=== PATIENT | male | born 1995 | race Caucasian/White ===

== ENCOUNTER 2017-10-21 00:17 | Emergency (ER) | payer OTHER ==
[2017-10-21] MEDS: ACETAMINOPHEN 500 MG TAB PO (03:51)
== END 2017-10-21 05:24 | disposition home or self-care (01) ==
LOC: FTE 00:17
DX: S09.93XA Unspecified injury of face, initial encounter (principal); R51 Headache; Y08.89XA Assault by other specified means, initial encounter; Z87.891 Personal history of nicotine dependence
CPT/HCPCS: 70450; 70486; 72072; 72125; 99285-25